=== PATIENT | female | born 1970 | race Caucasian/White ===

== ENCOUNTER → 2017-04-16 | Outpatient (CLI) | payer OTHER ==
--- NOTE | 2017-04-17 08:26 | MM ---
Reason for exam: screening (asymptomatic). Last mammogram was performed 1 year ago. History: Cancelled Right Mammotome of the right breast, March 06, 2011. Took hormonal contraceptives for 2 years beginning at age 21. Physical Findings: A clinical breast exam by your physician is recommended on an annual basis and results should be correlated with mammographic findings. MG Screening Mammo w CAD Bilateral CC and MLO view(s) were taken. Prior study comparison: April 10, 2016, bilateral MG screening mammo w CAD. April 08, 2015, bilateral MG screening mammo w CAD. The breast tissue is almost entirely fat. Asymmetric breast tissue in the right breast. No significant changes when compared with prior studies. ASSESSMENT: Benign, BI-RAD 2 RECOMMENDATION: Routine screening mammogram of both breasts in 1 year.
== END | disposition home or self-care (01) ==
LOC: RADMAMWWP 07:33
PROVIDERS: ATTEND Internal Medicine
DX: Z12.31 Encounter for screening mammogram for malignant neoplasm of breast (principal)

== ENCOUNTER 2017-04-30 12:23 | Emergency (ER) | payer OTHER ==
[2017-04-30 12:37] VITALS: BP 133/62; PULSE 56; RESP 20; TEMP 97.4
--- NOTE | 2017-04-30 12:54 | ED ---
URI HPI - General Chief Complaint: Upper Respiratory Infection Stated Complaint: Cough Time Seen by Provider: 04/30/17 12:38 Source: patient, RN notes reviewed Mode of arrival: ambulatory Limitations: no limitations - History of Present Illness Initial Comments: 46 yo female presents to the Er with cc of cough. Patient has had a cough for the last 2 weeks. Patient denies any fever or chills with the cough. Patient does admit to a history of pneumonia. Patient states she was concerned due to the continued cough so she thought she should be evaluated. Patient denies and chest pain or SOB with the cough. Patient states no nausea or vomiting. Patient denies any ear or throat pain. Patient states sometimes she will get into coughing fits when it starts. patient is in no pain at this time. She was concerned due to the continued cough and her history so she decided to be seen. Patient denies any recent fever, chills, shortness of breath, chest pain, back pain, abdominal pain, nausea vomiting, numbness or tingling, dysuria or hematuria, constipation or diarrhea, headaches or visual changes, or any other current symptoms. - Related Data Previous Rx's Medication Instructions Recorded Albuterol Inhaler [Ventolin Hfa 1 - 2 puff INHALATION Q4-6H PRN #1 04/30/17 Inhaler] inhaler Benzonatate [Tessalon Perles] 100 mg PO TID #10 cap 04/30/17 predniSONE 50 mg PO DAILY #5 tab 04/30/17 Allergies Allergy/AdvReac Type Severity Reaction Status Date / Time No Known Allergies Allergy Verified 04/30/17 12:37 Review of Systems ROS Statement: Those systems with pertinent positive or pertinent negative responses have been documented in the HPI. ROS Other: All systems not noted in ROS Statement are negative. Past Medical History Past Medical History: Hyperlipidemia, Hypertension History of Any Multi-Drug Resistant Organisms: None Reported Past Surgical History: Tubal Ligation Past Psychological History: No Psychological Hx Reported Smoking Status: Current every day smoker Past Alcohol Use History: None Reported Past Drug Use History: None Reported General Exam Limitations: no limitations General appearance: alert, in no apparent distress Head exam: Present: atraumatic, normocephalic, normal inspection ENT exam: Present: normal exam, mucous membranes moist Neck exam: Present: normal inspection. Absent: tenderness, meningismus, lymphadenopathy Respiratory exam: Present: normal lung sounds bilaterally. Absent: respiratory distress, wheezes, rales, rhonchi, stridor Cardiovascular Exam: Present: regular rate, normal rhythm, normal heart sounds. Absent: systolic murmur, diastolic murmur, rubs, gallop, clicks Neurological exam: Present: alert, oriented X3 Psychiatric exam: Present: normal affect, normal mood Skin exam: Present: warm, dry, intact, normal color. Absent: rash Course Vital Signs 04/30/17 12:33 Temperature 97.4 F L Pulse Rate 56 L Respiratory 20 Rate Blood Pressure 133/62 O2 Sat by Pulse 99 Oximetry Medical Decision Making - Medical Decision Making 46 yo female presents to the ER with cc of cough. At this time patient's x- rays read there is no evidence of pneumonia. At this time we will start patient on treatment for bronchitis we will also give her cough suppression. We did discuss return for hours and follow-up and all the patient's questions. They stated she understood and she is fine. At this time patient will be discharged home. - Radiology Data Radiology results: report reviewed, image reviewed Disposition Clinical Impression: Acute bronchitis Disposition: HOME SELF-CARE Condition: Stable Instructions: Acute Bronchitis (ED) Additional Instructions: Please use medication as discussed. Please follow up with family doctor if symptoms have not improved over the next two days. Please return to the emergency room if your symptoms increase or worsen or for any other concerns. Prescriptions: Albuterol Inhaler [Ventolin Hfa Inhaler] 1 - 2 puff INHALATION Q4-6H PRN #1 inhaler PRN Reason: Cough Benzonatate [Tessalon Perles] 100 mg PO TID #10 cap predniSONE 50 mg PO DAILY #5 tab Referrals: Sveta Vallejo MD [Primary Care Provider] - 1-2 days Time of Disposition: 13:03
--- NOTE | 2017-04-30 12:59 | XR ---
EXAMINATION TYPE: XR chest 2V DATE OF EXAM: 04/30/2017 COMPARISON: 06/25/2013 HISTORY: 46-year-old female with cough for 2 weeks TECHNIQUE: PA and lateral views FINDINGS: Slight rightward patient rotation alters the normal cardia mediastinal contours. Heart is normal size . Aorta and pulmonary vasculature are within normal limits. Suggestion of minimal central peribronchi al cuffing. No consolidation or pleural effusion. IMPRESSION: Suggestion of minimal central peribronchial cuffing. Correlate for asthma or bronchitis. No evidence for pneumonia.
== END 2017-04-30 13:10 | disposition home or self-care (01) ==
LOC: EC 12:23
DX: J20.9 Acute bronchitis, unspecified (principal); F17.200 Nicotine dependence, unspecified, uncomplicated
CPT/HCPCS: 71020; 99283

== ENCOUNTER 2018-04-08 17:15 | Emergency (ER) | payer OTHER ==
[2018-04-08 17:32] VITALS: BP 130/85; PULSE 80; RESP 18; TEMP 98.9
[2018-04-08] MEDS ORDERED: LORATADINE-PSEUDOEPH 5-120 MG 1 EACH TAB.ER.12H PO STA (17:54)
--- NOTE | 2018-04-08 17:57 | ED ---
URI HPI - General Chief Complaint: Upper Respiratory Infection Stated Complaint: COUGH Time Seen by Provider: 04/08/18 17:42 Source: patient Mode of arrival: ambulatory Limitations: no limitations - History of Present Illness Initial Comments: 47-year-old female patient presents to the emergency department today for cough 1 week. Patient states that she has been having clear nasal drainage and irritating cough that does not seem to be improving. Patient states she did take some Mucinex [id number] which did not help her symptoms. Patient denies any sputum production. Denies any chest pain, chest congestion, or shortness of breath. She denies any fevers or chills with this. She denies any ear pain. She does admit to smoking cigarettes. Patient denies any recent rash, abdominal pain, nausea, vomiting, diarrhea, constipation, back pain, numbness, tingling, dizziness, weakness, hematuria, dysuria, urinary urgency, urinary frequency, headache, visual changes, or any other complaints. - Related Data Previous Rx's Medication Instructions Recorded Albuterol Inhaler [Ventolin Hfa 1 - 2 puff INHALATION Q4-6H PRN #1 04/30/17 Inhaler] inhaler Benzonatate [Tessalon Perles] 100 mg PO TID #10 cap 04/30/17 predniSONE 50 mg PO DAILY #5 tab 04/30/17 Doxycycline Hyclate [Vibramycin] 100 mg PO BID #20 cap 04/08/18 Loratadine-Pseudoeph 5-120 mg 1 each PO Q12HR #10 tab 04/08/18 [Claritin-D 12 HR] Promethazine 6.25MG/5Ml [Phenergan 5 ml PO Q6H #100 ml 04/08/18 Syrup] Allergies Allergy/AdvReac Type Severity Reaction Status Date / Time No Known Allergies Allergy Verified 04/08/18 17:32 Review of Systems ROS Statement: Those systems with pertinent positive or pertinent negative responses have been documented in the HPI. ROS Other: All systems not noted in ROS Statement are negative. Past Medical History Past Medical History: Hyperlipidemia, Hypertension History of Any Multi-Drug Resistant Organisms: None Reported Past Surgical History: Tubal Ligation Past Psychological History: No Psychological Hx Reported Smoking Status: Current every day smoker Past Alcohol Use History: None Reported Past Drug Use History: None Reported General Exam Limitations: no limitations General appearance: alert, in no apparent distress, other (This is a well- developed, well-nourished adult female patient in no acute distress. Vital signs upon presentation are temperature 98.9F, pulse 80, respirations 18, blood pressure 130/85, pulse ox 100% on room air.) Eye exam: Present: normal appearance, PERRL, EOMI. Absent: scleral icterus, conjunctival injection, periorbital swelling ENT exam: Present: normal exam, normal oropharynx, TM's normal bilaterally Neck exam: Present: normal inspection. Absent: tenderness, meningismus, lymphadenopathy Respiratory exam: Present: normal lung sounds bilaterally, other (Respirations even and unlabored. Dry cough noted throughout exam. Patient is able speak in full sentences without difficulty.). Absent: respiratory distress, wheezes, rales, rhonchi, stridor Cardiovascular Exam: Present: regular rate, normal rhythm, normal heart sounds. Absent: systolic murmur, diastolic murmur, rubs, gallop, clicks GI/Abdominal exam: Present: soft, normal bowel sounds. Absent: distended, tenderness, guarding, rebound, rigid Neurological exam: Present: alert, oriented X3, CN II-XII intact Psychiatric exam: Present: normal affect, normal mood Skin exam: Present: warm, dry, intact, normal color. Absent: rash Course Vital Signs 04/08/18 17:29 Temperature 98.9 F Pulse Rate 80 Respiratory 18 Rate Blood Pressure 130/85 O2 Sat by Pulse 100 Oximetry Medical Decision Making - Medical Decision Making 47-year-old female patient presented to the emergency department today for complaints of cough and nasal congestion. Physical examination was relatively unremarkable. Lung sounds are clear and equal bilaterally. Patient was not having any shortness of breath. Vital signs are stable. Patient is afebrile. Chest x-ray was reviewed and did show bilateral linear infiltrates in the upper lobes. Patient will be treated with doxycycline twice daily for the next 10 days. I do believe the patient does have an ALLERGIC component as well as she is having clear nasal discharge. She was Claritin-D. We'll give Phenergan syrup for cough. She is instructed to follow-up with her primary care physician for recheck in 1-2 days. Return parameters discussed in detail. She verbalizes understanding and agrees with this plan. Note: Pharmacy did call, doxycycline is not covered by her insurance. We'll switch to a azithromycin 500 mg once daily for 5 days. - Radiology Data Radiology results: report reviewed, image reviewed Two-view x-ray of the chest is obtained. There is bilateral somewhat linear infiltrates in the mid lung davey. The lower lobes are clear. Heart size is normal. There is no heart failure. Mediastinum is normal. Impression by Dr. Denton shows bilateral upper lobe linear pulmonary infiltrates are new compared to old exam. Normal heart. Disposition Clinical Impression: Allergic rhinitis, Bilateral pneumonia Disposition: HOME SELF-CARE Condition: Good Instructions: Allergic Rhinitis (ED), Community Acquired Pneumonia (ED) Additional Instructions: Take medications as directed. Follow-up with your primary care physician for recheck in 1-2 days. Return here immediately for any new, worsening, or concerning symptoms. Prescriptions: Doxycycline Hyclate [Vibramycin] 100 mg PO BID #20 cap Loratadine-Pseudoeph 5-120 mg [Claritin-D 12 HR] 1 each PO Q12HR #10 tab Promethazine 6.25MG/5Ml [Phenergan Syrup] 5 ml PO Q6H #100 ml Is patient prescribed a controlled substance at d/c from ED?: No Referrals: Sveta Vallejo MD [Primary Care Provider] - 1-2 days Time of Disposition: 18:16
--- NOTE | 2018-04-08 18:11 | XR ---
EXAMINATION TYPE: XR chest 2V DATE OF EXAM: 04/08/2018 COMPARISON: 04/30/2017 HISTORY: Cough for one week TECHNIQUE: Frontal and lateral views of the chest are obtained. FINDINGS: There is bilateral somewhat linear infiltrates in the mid lung davey. The lower lobes are clear. Heart size is normal. There is no heart failure. Mediastinum is normal. IMPRESSION: Bilateral upper lobe linear pulmonary infiltrates are new compared to old exam. Normal h eart.
== END 2018-04-08 18:20 | disposition home or self-care (01) ==
LOC: EC 17:15
DX: J18.9 Pneumonia, unspecified organism (principal); J30.9 Allergic rhinitis, unspecified; F17.210 Nicotine dependence, cigarettes, uncomplicated
CPT/HCPCS: 71046; 99283

== ENCOUNTER → 2018-08-09 | Outpatient (CLI) | payer OTHER ==
--- NOTE | 2018-08-09 09:14 | XR ---
EXAMINATION TYPE: XR chest 2V DATE OF EXAM: 08/09/2018 COMPARISON: 04/08/2018 INDICATION: Pneumonia TECHNIQUE: Frontal and lateral views of the chest are obtained. FINDINGS: The heart size is normal. The pulmonary vasculature is normal. The lungs are clear. IMPRESSION: 1. No acute pulmonary process.
--- NOTE | 2018-08-12 10:52 | MM ---
Reason for exam: screening (asymptomatic). Last mammogram was performed 1 year and 4 months ago. History: Cancelled Right Mammotome of the right breast, March 06, 2011. Took hormonal contraceptives for 2 years beginning at age 21. Physical Findings: A clinical breast exam by your physician is recommended on an annual basis and results should be correlated with mammographic findings. MG Screening Mammo w CAD Bilateral CC and MLO view(s) were taken. Prior study comparison: April 16, 2017, bilateral MG screening mammo w CAD. April 10, 2016, bilateral MG screening mammo w CAD. There are scattered fibroglandular densities. Developing 2.5cm asymmetry left middle depth central aspect. ASSESSMENT: Incomplete: need additional imaging evaluation, BI-RAD 0 RECOMMENDATION: Special view mammogram and ultrasound of the left breast. [facility] will attempt to contact patient to return for supplemental views and ultrasound.
== END | disposition home or self-care (01) ==
LOC: RADMAMWWP 08:43
PROVIDERS: ATTEND Internal Medicine
DX: Z12.31 Encounter for screening mammogram for malignant neoplasm of breast (principal); J18.9 Pneumonia, unspecified organism
CPT/HCPCS: 71046; 77067

== ENCOUNTER → 2018-08-21 | Outpatient (CLI) | payer OTHER ==
--- NOTE | 2018-08-22 07:32 | MM ---
Reason for exam: additional evaluation requested from abnormal screening. Last mammogram was performed less than 1 month ago. History: Cancelled Right Mammotome of the right breast, March 06, 2011. Took hormonal contraceptives for 2 years beginning at age 21. Physical Findings: Nurse did not find any significant physical abnormalities on exam. MG Work Up Mamm w CAD LT CC and MLO view(s) were taken of the left breast. Prior study comparison: August 09, 2018, bilateral MG screening mammo w CAD. Asymmetric breast tissue 6 o'clock left breast. These results were verbally communicated with the patient and result sheet given to the patient on 08/21/18. ASSESSMENT: Incomplete: need additional imaging evaluation, BI-RAD 0 RECOMMENDATION: Ultrasound of the left breast.
--- NOTE | 2018-08-22 07:34 | USB ---
Reason for exam: additional evaluation requested from abnormal screening. History: Cancelled Right Mammotome of the right breast, March 06, 2011. Took hormonal contraceptives for 2 years beginning at age 21. US Breast Workup Limited LT Left limited breast ultrasound including focal area of concern, retroareolar and axilla demonstrates a 0.5 x 0.4 x 0.2cm cystic lesion at 6 o'clock. These results were verbally communicated with the patient and result sheet given to the patient on 08/21/18. ASSESSMENT: Suspicious, BI-RAD 4 RECOMMENDATION: Surgical consultation and stereotactic core biopsy of the left breast. Patient requested not to schedule biopsy or surgical consult at this time, will follow up with Dr. Vallejo after he recieves the report. PRELIMINARY REPORT CALLED AND FAXED TO DR. VALLEJO ON 08/22/18.
== END | disposition home or self-care (01) ==
LOC: RADMAMWWP 13:45
PROVIDERS: ATTEND Internal Medicine
DX: R92.8 Other abnormal and inconclusive findings on diagnostic imaging of breast (principal)
CPT/HCPCS: 77065

== ENCOUNTER → 2018-09-27 | Outpatient (CLI) | payer SELFPAY ==
[2018-09-27 13:41] VITALS: BP 120/81; PULSE 47; RESP 18; TEMP 97.4; BMI 29.1
--- NOTE | 2018-09-27 13:56 | P.GSHP ---
History of Present Illness H&P Date: 09/27/18 Chief Complaint: Abnormal mammogram left breast Shanna is a 48-year-old white female who had a routine screening mammogram performed in July 2018. She was noted to have an area of concern in her left breast. Ultrasound was performed which revealed a cystic lesion at 6:00. The feeling was that the area of concern was seen on the mammogram and it was recommended she undergo a stereotactic core biopsy of asymmetric breast tissue at 6 o'clock position of the left breast. The patient herself does not feel anything in her breast. She has no masses in her breast. She has no nipple discharge or skin changes of concern. She has had no trauma or infection of the breast. Family history: 1.sister: hodgkins Hormonal History: menarche: 12 : 3, children 3, first at 22, did not breast feed periods: regular BCP: none hormones: none Past Surgical History: 1. tubal 2. cyst removed from ovary Past Medical History: 1. Hypertension 2. High cholesterol Social history: Smoke: Half pack per day for 20 years Alcohol: Negative Drugs: Negative - Constitutional Constitutional: Denies chills, Denies fever - EENT Eyes: denies decreased vision, denies pain Ears: deny: decreased hearing, tinnitus Ears, nose, mouth and throat: Denies headache, Denies sore throat - Breasts Breasts: bilateral: as per HPI - Cardiovascular Cardiovascular: Denies chest pain, Denies shortness of breath - Respiratory Comment: smoker Respiratory: Denies cough, Denies 7 - Gastrointestinal Gastrointestinal: Denies abdominal pain, Denies diarrhea, Denies nausea, Denies vomiting - Genitourinary (Female) Genitourinary: Denies dysuria, Denies hematuria - Menstruation Menstruation: Reports cycle variable - Musculoskeletal Comment: At times her right leg aches and she takes naproxen - 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 Comment: 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 - Neurological Neurological: Denies numbness, Denies weakness - Psychiatric Psychiatric: Denies anxiety, Denies depression - Endocrine Endocrine: Denies fatigue, Denies weight change - Hematologic/Lymphatic Comment: none - Allergic/Immunologic Comment: none Past Medical History Past Medical History: Hyperlipidemia, Hypertension History of Any Multi-Drug Resistant Organisms: None Reported Past Surgical History: Tubal Ligation Past Anesthesia/Blood Transfusion Reactions: No Reported Reaction Past Psychological History: No Psychological Hx Reported Smoking Status: Current every day smoker Past Alcohol Use History: None Reported Past Drug Use History: None Reported - Past Family History Mother Family Medical History: No Reported History Father Additional Family Medical History / Comment(s): Medications and Allergies Home Medications Medication Instructions Recorded Confirmed Type Lisinopril 1 tab PO DAILY 09/12/18 09/27/18 History Multivitamins, Thera [Multivitamin 1 tab PO DAILY 09/12/18 09/27/18 History (formulary)] Naproxen [Naprosyn] 500 mg PO Q12HR 09/12/18 09/27/18 History Simvastatin [Zocor] 1 tab PO DAILY 09/12/18 09/27/18 History Allergies Allergy/AdvReac Type Severity Reaction Status Date / Time No Known Allergies Allergy Verified 09/12/18 11:42 Surgical - Exam Vital Signs Temp Pulse Resp BP Pulse Ox 97.4 F L 47 L 18 120/81 98 09/27/18 13:30 09/27/18 13:30 09/27/18 13:30 09/27/18 13:30 09/27/18 13:30 BMI 29.1 - General well developed, well nourished, no distress - Eyes normal ocular movement - ENT poor dentetion normal pinna, no hearing loss - Neck no masses, trachea midline - Respiratory normal respiratory effort, clear to auscultation - Cardiovascular Rhythm: regular Heart Sounds: normal: S1, S2 - Abdomen Abdomen: soft, non tender, no guarding, no rigid, no rebound - 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 normal turger tattoos - Musculoskeletal normal gait - Psychiatric oriented to time, oriented to person, oriented to place, speech is normal, memory intact breast exam: Right breast: Multi-positional exam no dominant masses or nodules of concern Right axilla: No adenopathy of concern Left breast: Multi-positional exam no dominant masses or nodules of concern Left axilla: No adenopathy of concern Results Mammogram report reviewed Assessment and Plan Assessment: Impression: 1. Mammographic abnormality left breast 2. Retention 3. High cholesterol Plan: 1. Stereotactic core biopsy left breast lesion 2. Medical management of medical problems The risk and benefits of the procedure been discussed with the patient and her stand and wished to proceed. This will be scheduled in the near future. Cc: Dr. Vallejo
== END ==
LOC: WWCWWP 13:13
PROVIDERS: ATTEND Surgery
DX: Z53.9 Procedure and treatment not carried out, unspecified reason (principal)

== ENCOUNTER → 2018-10-01 | Day surgery (SDC) | payer SELFPAY ==
[2018-10-01 07:25] VITALS: RESP 16; BMI 29.1
[2018-10-01 08:48] VITALS: BP 126/77; PULSE 69; TEMP 98.8
--- NOTE | 2018-10-01 13:55 | P.PCN ---
Date of Procedure: 10/01/18 Preoperative Diagnosis: Mammographic abnormality left breast at 6 o'clock position Postoperative Diagnosis: Nodular density 6 o'clock position left breast seen on mammogram not well seen on ultrasound Procedure(s) Performed: Left breast stereotactic core biopsy Anesthesia: local Surgeon: Ashley Somers Estimated Blood Loss (ml): 0 Pathology: other (Breast tissue) Condition: stable Disposition: same day Indications for Procedure: Mammographic abnormality revealing asymmetric density 6 o'clock position of the left breast, area not well seen on ultrasound Operative Findings: Breast tissue Description of Procedure: The patient is a 48-year-old white female who was noted to have an area of asymmetric density at the 6 o'clock position of the left breast. It was felt that she should undergo stereotactic core biopsy of this area. Risk and benefits of the procedure as well as alternatives were discussed with the patient. The patient chose to undergo stereotactic core biopsy. The patient was brought to the stereotactic core biopsy room. The patient was positioned on the Lorad table and a CC from below approach was used to sample the specimen. Cable Spooler films were identified and the lesion was noted on the special certificate dictator films. Stereo pair was then obtained. The lesion of concern was targeted. A CC from below approach was used to do the biopsy. The skin was prepped using Betadine. 20 mL of 1% lidocaine were used to anesthetize the area of concern. A 9-gauge vacuum assisted rotating core biopsy needle was driven to the correct coordinates. Prefire and post-fire films were obtained and confirmed that the area of concern had been appropriately targeted. Approximately 12 biopsy specimens were obtained. A specimen radiograph was not obtained secondary to a symmetry and no microcalcifications were targeted. A secure marked top Marker was placed. This was confirmed to be in the correct location with postbiopsy radiographs. The patient tolerated the procedure in stable condition. Specimen was sent for pathology. Patient will follow-up with Dr. Paiz in 1 week. There were no immediate postoperative complications.
--- NOTE | 2018-10-01 14:12 | MM ---
EXAMINATION TYPE: MG stereo VAD BX LT DATE OF EXAM: 10/01/2018 COMPARISON: Prior mammogram 08/21/2018 CLINICAL HISTORY: Abnormal mammogram TECHNIQUE: Stereotactic guided core biopsy of left breast. FINDINGS: The procedure of stereotactic guided core biopsy was explained to the patient. Benefits, alternatives, and risks were discussed. An informed consent was then obtained. The shortness pathway for biopsy was chosen. Shortness pathway was inferior approach. I performed the localization, then surgeon, Dr. Paiz performed the remainder of the procedure. A vacuum assisted biopsy gun was used to obtain multiple core samples. The patient tolerated the procedure well without any immediate complication. The patient was kept in the radiology department for short stay after the procedure and then discharged home in stable condition. Targeted calcifications are identified in specimen mammogram. Post biopsy mammogram shows the clip to appear in satisfactory position relative to the targeted area of concern on the preprocedure images. IMPRESSION: SUCCESSFUL, UNCOMPLICATED STEREOTACTIC GUIDED CORE BIOPSY OF AREA OF CONCERN IN THE left BREAST, FULL PATHOLOGY RESULTS TO FOLLOW. Pathology Results: Benign LEFT BREAST, STEREOTACTIC CORE BIOPSY: Fibrocystic changes including prominent stromal fibrosis/fibroadenomatoid hyperplasia, cysts and adenosis. Recommendation Follow up mammogram of the left breast in 6 months. GEOVANNY
== END ==
LOC: RADMAMWWP 06:52
PROVIDERS: ATTEND Surgery
DX: N60.32 Fibrosclerosis of left breast (principal); N62 Hypertrophy of breast; N60.22 Fibroadenosis of left breast
CPT/HCPCS: 88305; 19081; A4648; J2001

== ENCOUNTER → 2018-10-10 | Outpatient (CLI) | payer SELFPAY ==
[2018-10-10 14:01] VITALS: BP 128/76; PULSE 54; RESP 18; TEMP 98.3; BMI 29.1
--- NOTE | 2018-10-10 14:15 | P.PN ---
Subjective Progress Note Date: 10/10/18 Principal diagnosis: Fibrocystic breast changes Patient is a 48-year-old white female status post left breast stereotactic core biopsy. Pathology was benign. This was done for an area of asymmetry and no microcalcifications were identified. The patient states she has some mild soreness at the site of biopsy but otherwise no complaints. Objective - Vital Signs Vital signs: Vital Signs Temp 98.3 F 10/10/18 13:58 Pulse 54 L 10/10/18 13:58 Resp 18 10/10/18 13:58 BP 128/76 10/10/18 13:58 Pulse Ox 98 10/10/18 13:58 Intake & Output 10/09/18 10/10/18 10/10/18 18:59 06:59 18:59 Weight 79.379 kg - Constitutional General appearance: Present: average body habitus, cooperative - EENT Eyes: Present: EOMI ENT: Present: hearing grossly normal - Respiratory Respiratory: bilateral: CTA - Cardiovascular Rhythm: regular Heart sounds: normal: S1, S2 - Gastrointestinal General gastrointestinal: Present: soft - 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: Present: normal turgor - Musculoskeletal Musculoskeletal: Present: gait normal - Psychiatric Psychiatric: Present: A&O x's 3, appropriate affect, intact judgment & insight - Additional findings Additional findings: Biopsy site in the left breast is clean and dry no evidence of any infection, no evidence of any hematoma, Assessment and Plan Assessment: Impression: 1. Patient status post left breast are detected core biopsy/pathology benign Plan: 1. Repeat left breast mammogram and physician exam in 6 months Follow-up in 6 months Cc:
== END ==
LOC: WWCWWP 13:02
PROVIDERS: ATTEND Surgery
DX: Z53.9 Procedure and treatment not carried out, unspecified reason (principal)